=== PATIENT | female | born 1980 | race Caucasian/White ===

== ENCOUNTER → 2017-06-19 | Outpatient (CLI) | payer MEDICAID ==
[2017-06-19 08:22] LABS: Basophils # (A) 0.1 k/uL (0-0.2); Basophils % (A) 1 %; CH 28.7; CHCM 34.1; Eosinophils # (A) 0.1 k/uL (0-0.7); Eosinophils % (A) 2 %; HDW 2.16; HGB 13.5 gm/dL (11.4-16.0); Luc # (Auto) 0.13; Luc % (Auto) 2; Lymphocytes # (A) 2.4 k/uL (1.0-4.8); Lymphocytes % (A) 35 %; MCH 27.8 pg (25.0-35.0); MCHC 32.9 g/dL (31.0-37.0); MCV 84.6 fL (80.0-100.0); Mean Platelet Volume 7.2; Monocytes # (A) 0.4 k/uL (0-1.0); Monocytes % (A) 5 %; Neutrophils # (A) 3.8 k/uL (1.3-7.7); Neutrophils % (A) 55 %; RBC 4.84 m/uL (3.80-5.40); WBC 6.9 k/uL (3.8-10.6); WBC (Perox) 6.76
[2017-06-19 08:46] LABS: ALT 43 U/L (9-52); AST 24 U/L (14-36); Alkaline Phosphatase 88 U/L (38-126); Anion Gap 10 mmol/L; Blood Urea Nitrogen 11 mg/dL (7-17); Calcium 9.7 mg/dL (8.4-10.2); Carbon Dioxide 27 mmol/L (22-30); Chloride 103 mmol/L (98-107); Cholesterol 239 mg/dL (<200); Glucose 87 mg/dL (74-99); HDL Cholesterol 73 mg/dL (40-60); Non-African American GFR(MDRD) >60 (>60 ml/min/1.73 sqM); Potassium 4.6 mmol/L (3.5-5.1); Sodium 140 mmol/L (137-145); Total Bilirubin 0.4 mg/dL (0.2-1.3); Total Protein 7.2 g/dL (6.3-8.2)
== END | disposition home or self-care (01) ==
LOC: LABWHC1 07:28
PROVIDERS: ATTEND Family Medicine
DX: Z00.00 Encounter for general adult medical examination without abnormal findings (principal)
CPT/HCPCS: 36415; 80053; 80061; 84443; 85025

== ENCOUNTER → 2017-07-17 | Outpatient (CLI) | payer MEDICAID ==
[2017-07-18 12:08] LABS: Lyme IgG/IgM Interp NEGATIVE (NEGATIVE)
== END | disposition home or self-care (01) ==
LOC: LABWHC1 07:27
PROVIDERS: ATTEND Otolaryngology
DX: R43.0 Anosmia (principal); R53.83 Other fatigue
CPT/HCPCS: 36415; 82607; 84443; 86618

== ENCOUNTER → 2017-07-29 | Outpatient (CLI) | payer MEDICAID ==
--- NOTE | 2017-07-29 07:53 | MR ---
EXAMINATION TYPE: MR brain wo/w con DATE OF EXAM: 07/29/2017 COMPARISON: NONE HISTORY: anosmia TECHNIQUE: Multiplanar, multisequence images of the brain and brainstem is performed without and with IV contras t, utilizing 8 mL intravenous Gadavist . FINDINGS: Diffusion weighted images demonstrate no evidence of a recent infarct or other diffusion ab normality. There is no extra-axial fluid collection or significant white matter signal abnormality. The ventricular system and cisternal spaces are normal in size and appearance. The brain volume is age appropriate. Midline structures demonstrate normal morphology. The craniocervical junction appears within normal limits. Post contrast images demonstrate no abnormal enhancement. There is changes of the left chronic sinusitis. IMPRESSION: 1. No acute process.
== END ==
LOC: RADMRIMAIN 06:30
PROVIDERS: ATTEND Otolaryngology
DX: R51 Headache (principal); R43.0 Anosmia
CPT/HCPCS: 70553; A9581

== ENCOUNTER → 2018-04-13 | Outpatient (CLI) | payer MEDICAID ==
[2018-04-13 07:54] LABS: Basophils # (A) 0.1 k/uL (0-0.2); Basophils % (A) 1 %; Eosinophils # (A) 0.2 k/uL (0-0.7); Eosinophils % (A) 2 %; HCT 43.2 % (34.0-46.0); HGB 14.1 gm/dL (11.4-16.0); Lymphocytes # (A) 3.5 k/uL (1.0-4.8); Lymphocytes % (A) 35 %; MCH 27.5 pg (25.0-35.0); MCHC 32.7 g/dL (31.0-37.0); MCV 84.2 fL (80.0-100.0); Mean Platelet Volume 6.4; Monocytes # (A) 0.5 k/uL (0-1.0); Monocytes % (A) 5 %; Neutrophils # (A) 5.5 k/uL (1.3-7.7); Neutrophils % (A) 55 %; Platelet Count 330 k/uL (150-450); RBC 5.13 m/uL (3.80-5.40); RDW 13.4 % (11.5-15.5); WBC 9.9 k/uL (3.8-10.6)
[2018-04-13 08:16] LABS: ALT 31 U/L (9-52); AST 17 U/L (14-36); Albumin 4.4 g/dL (3.5-5.0); Alkaline Phosphatase 84 U/L (38-126); Anion Gap 14 mmol/L; Blood Urea Nitrogen 19 mg/dL (7-17); Calcium 9.6 mg/dL (8.4-10.2); Carbon Dioxide 27 mmol/L (22-30); Chloride 101 mmol/L (98-107); Cholesterol 275 mg/dL (<200); Glucose 90 mg/dL (74-99); HDL Cholesterol 73 mg/dL (40-60); LDL Cholesterol,Calculated 179 mg/dL (0-99); Potassium 4.2 mmol/L (3.5-5.1); Sodium 142 mmol/L (137-145); Total Bilirubin 0.4 mg/dL (0.2-1.3); Total Protein 7.2 g/dL (6.3-8.2); Triglycerides 113 mg/dL (<150)
== END | disposition home or self-care (01) ==
LOC: LABWHC1 07:09
PROVIDERS: ATTEND Family Medicine
DX: Z00.00 Encounter for general adult medical examination without abnormal findings (principal)
CPT/HCPCS: 36415; 80053; 80061; 84443; 85025

== ENCOUNTER → 2018-05-13 | Outpatient (CLI) | payer MEDICAID ==
[2018-05-13 07:43] LABS: Basophils # (A) 0.1 k/uL (0-0.2); Basophils % (A) 1 %; Eosinophils # (A) 0.2 k/uL (0-0.7); Eosinophils % (A) 2 %; HGB 12.9 gm/dL (11.4-16.0); Lymphocytes # (A) 3.7 k/uL (1.0-4.8); Lymphocytes % (A) 32 %; MCH 26.5 pg (25.0-35.0); MCHC 31.4 g/dL (31.0-37.0); MCV 84.5 fL (80.0-100.0); Mean Platelet Volume 6.4; Monocytes # (A) 0.6 k/uL (0-1.0); Monocytes % (A) 5 %; Neutrophils # (A) 6.7 k/uL (1.3-7.7); Neutrophils % (A) 59 %; Platelet Count 345 k/uL (150-450); RBC 4.86 m/uL (3.80-5.40); RDW 13.1 % (11.5-15.5); WBC 11.4 k/uL (3.8-10.6)
[2018-05-13 08:08] LABS: ALT 37 U/L (9-52); AST 17 U/L (14-36); Albumin 4.2 g/dL (3.5-5.0); Alkaline Phosphatase 83 U/L (38-126); Anion Gap 10 mmol/L; Blood Urea Nitrogen 15 mg/dL (7-17); Carbon Dioxide 23 mmol/L (22-30); Chloride 105 mmol/L (98-107); Glucose 95 mg/dL (74-99); Potassium 4.4 mmol/L (3.5-5.1); Sodium 138 mmol/L (137-145); Total Bilirubin 0.3 mg/dL (0.2-1.3); Total Protein 6.8 g/dL (6.3-8.2)
== END | disposition home or self-care (01) ==
LOC: LABWHC1 07:23
PROVIDERS: ATTEND Family Medicine
DX: I10 Essential (primary) hypertension (principal)
CPT/HCPCS: 36415; 80053; 85025

== ENCOUNTER → 2018-09-08 | Outpatient (CLI) | payer MEDICAID ==
[2018-09-08 08:19] LABS: Basophils # (A) 0.1 k/uL (0-0.2); Basophils % (A) 1 %; Eosinophils # (A) 0.2 k/uL (0-0.7); Eosinophils % (A) 2 %; HCT 44.5 % (34.0-46.0); HGB 13.7 gm/dL (11.4-16.0); Lymphocytes # (A) 2.8 k/uL (1.0-4.8); Lymphocytes % (A) 29 %; MCH 27.2 pg (25.0-35.0); MCHC 30.9 g/dL (31.0-37.0); MCV 87.9 fL (80.0-100.0); Mean Platelet Volume 8.1; Monocytes # (A) 0.5 k/uL (0-1.0); Monocytes % (A) 5 %; Neutrophils # (A) 6.1 k/uL (1.3-7.7); Neutrophils % (A) 63 %; Platelet Count 333 k/uL (150-450); RBC 5.06 m/uL (3.80-5.40); RDW 13.6 % (11.5-15.5); WBC 9.7 k/uL (3.8-10.6)
[2018-09-08 17:11] LABS: Albumin 4.7 g/dL (3.80-4.90); Albumin/Globulin Ratio 2.47 (1.20-2.10); Anion Gap 8.5 mmol/L (4.00-12.00); Calcium 9.4 mg/dL (8.7-10.3); Carbon Dioxide 23.5 mmol/L (21.6-31.8); Globulin 1.9 g/dL (2.1-3.7); LDL Cholesterol,Calculated 116.2 mg/dL (0.0-131.0); Potassium 4.5 mmol/L (3.5-5.5); Total Bilirubin 0.3 mg/dL (0.2-1.2); Total Protein 6.6 g/dL (6.2-8.2); VLDL Calculation 48.8 mg/dL (5.00-40.00)
== END | disposition home or self-care (01) ==
LOC: LABWHC1 07:42
PROVIDERS: ATTEND Family Medicine
DX: E78.2 Mixed hyperlipidemia (principal); I10 Essential (primary) hypertension
CPT/HCPCS: 36415; 80053; 80061; 85025

== ENCOUNTER → 2018-12-09 | Outpatient (CLI) | payer MEDICAID ==
[2018-12-09 12:24] LABS: Albumin 4.5 g/dL (3.80-4.90); Albumin/Globulin Ratio 1.96 (1.60-3.17); Anion Gap 8.4 mmol/L (4.00-12.00); Calcium 9.4 mg/dL (8.7-10.3); Carbon Dioxide 26.6 mmol/L (21.6-31.8); Globulin 2.3 g/dL (1.6-3.3); Potassium 4.5 mmol/L (3.5-5.5); Total Bilirubin 0.4 mg/dL (0.3-1.2); Total Protein 6.8 g/dL (6.2-8.2)
== END | disposition home or self-care (01) ==
LOC: LABWHC1 07:34
PROVIDERS: ATTEND Family Medicine
DX: E78.2 Mixed hyperlipidemia (principal)
CPT/HCPCS: 36415; 80053; 80061

== ENCOUNTER → 2019-03-09 | Outpatient (CLI) | payer MEDICAID ==
[2019-03-09 12:35] LABS: LDL Cholesterol,Calculated 124.2 mg/dL (0.0-131.0); VLDL Calculation 17.8 mg/dL (5.00-40.00)
== END | disposition home or self-care (01) ==
LOC: LABWHC1 07:12
PROVIDERS: ATTEND Family Medicine
DX: E78.2 Mixed hyperlipidemia (principal)
CPT/HCPCS: 36415; 80061

== ENCOUNTER → 2019-06-23 | Outpatient (CLI) | payer MEDICAID ==
[2019-06-23 07:57] LABS: Basophils # (A) 0.1 k/uL (0-0.2); Basophils % (A) 1 %; Eosinophils # (A) 0.2 k/uL (0-0.7); Eosinophils % (A) 3 %; HCT 41.9 % (34.0-46.0); HGB 13.4 gm/dL (11.4-16.0); Lymphocytes # (A) 2.5 k/uL (1.0-4.8); Lymphocytes % (A) 33 %; MCH 28.2 pg (25.0-35.0); MCV 88.1 fL (80.0-100.0); Mean Platelet Volume 6.5; Monocytes # (A) 0.4 k/uL (0-1.0); Monocytes % (A) 5 %; Neutrophils # (A) 4.4 k/uL (1.3-7.7); Neutrophils % (A) 57 %; Platelet Count 265 k/uL (150-450); RBC 4.76 m/uL (3.80-5.40); RDW 12.9 % (11.5-15.5); WBC 7.8 k/uL (3.8-10.6)
[2019-06-23 11:27] LABS: Albumin 4.5 g/dL (3.80-4.90); Albumin/Globulin Ratio 2.25 (1.60-3.17); Anion Gap 10.1 mmol/L (4.00-12.00); BUN/Creat Ratio 25.56 Ratio (12.00-20.00); Calcium 9.8 mg/dL (8.7-10.3); Carbon Dioxide 26.9 mmol/L (21.6-31.8); Chol/HDL Ratio 2.46; LDL Cholesterol,Calculated 129.8 mg/dL (0.0-131.0); Potassium 4.5 mmol/L (3.5-5.5); Total Bilirubin 0.5 mg/dL (0.2-1.2); Total Protein 6.5 g/dL (6.2-8.2); VLDL Calculation 20.2 mg/dL (5.00-40.00)
== END | disposition home or self-care (01) ==
LOC: LABWHC1 07:29
PROVIDERS: ATTEND Family Medicine
DX: I10 Essential (primary) hypertension (principal); E78.2 Mixed hyperlipidemia
CPT/HCPCS: 36415; 80053; 80061; 85025

== ENCOUNTER → 2019-09-13 | Outpatient (CLI) | payer MEDICAID ==
[2019-09-13 08:46] LABS: Basophils # (A) 0.1 k/uL (0-0.2); Basophils % (A) 1 %; Eosinophils # (A) 0.2 k/uL (0-0.7); Eosinophils % (A) 2 %; HCT 39.5 % (34.0-46.0); HGB 13.1 gm/dL (11.4-16.0); Lymphocytes # (A) 3.5 k/uL (1.0-4.8); Lymphocytes % (A) 47 %; MCH 29.3 pg (25.0-35.0); MCHC 33.2 g/dL (31.0-37.0); MCV 88.4 fL (80.0-100.0); Mean Platelet Volume 6.1; Monocytes # (A) 0.4 k/uL (0-1.0); Monocytes % (A) 5 %; Neutrophils # (A) 3.2 k/uL (1.3-7.7); Neutrophils % (A) 43 %; Platelet Count 295 k/uL (150-450); RBC 4.46 m/uL (3.80-5.40); RDW 12.9 % (11.5-15.5); WBC 7.4 k/uL (3.8-10.6)
[2019-09-13 18:38] LABS: African American GFR (CKD) 107.6 (60.0-200.0); Albumin 4.3 g/dL (3.80-4.90); Albumin/Globulin Ratio 2.39 (1.60-3.17); Anion Gap 6.4 mmol/L (4.00-12.00); BUN/Creat Ratio 26.25 Ratio (12.00-20.00); Calcium 9.2 mg/dL (8.7-10.3); Carbon Dioxide 26.6 mmol/L (21.6-31.8); Chol/HDL Ratio 2.6; Folate, Serum 11.6 ng/mL; Globulin 1.8 g/dL (1.6-3.3); Non-African American GFR(CKD) 92.9 (60.0-200.0); Potassium 4.2 mmol/L (3.5-5.5); Total Bilirubin 0.4 mg/dL (0.3-1.2); Total Protein 6.1 g/dL (6.2-8.2)
== END | disposition home or self-care (01) ==
LOC: LABWHC1 07:32
PROVIDERS: ATTEND Family Medicine
DX: Z00.00 Encounter for general adult medical examination without abnormal findings (principal); R53.83 Other fatigue
CPT/HCPCS: 36415; 80053; 80061; 82306; 82607; 82746; 84443; 85025

== ENCOUNTER 2019-10-07 14:02 | Emergency (ER) | payer MEDICAID ==
[2019-10-07] MEDS ORDERED: SODIUM CHLORIDE 0.9% 1,000 ML IV STA (14:43)
[2019-10-07] MEDS ORDERED: METOCLOPRAMIDE 5 MG/ML 2 ML VIAL IVP STA (14:44)
[2019-10-07] MEDS ORDERED: MECLIZINE 12.5 MG TAB PO STA (14:44)
--- NOTE | 2019-10-07 14:47 | ED ---
General Adult HPI - General Chief complaint: Syncope Stated complaint: Dizziness Time Seen by Provider: 10/07/19 14:33 Source: patient, RN notes reviewed Mode of arrival: ambulatory Limitations: no limitations - History of Present Illness Initial comments: Patient is a pleasant 39-year-old female presenting to the emergency department complaints of dizziness and syncope. Patient states yesterday morning she woke up dizzy. Patient went to the bathroom and passed out, possibly twice. Patient has been dizzy most the day yesterday. Patient thought she was doing somewhat better today and then got more dizzy again and felt she may pass out again. P atient describes dizziness as a spinning type sensation. No confusion. No weakness. No headache. No isolated area of weakness. Patient does have history of similar type episode several months ago. - Related Data Previous Rx's Medication Instructions Recorded Meclizine [Antivert] 25 mg PO TID PRN #12 tab 10/07/19 Metoclopramide HCl [Reglan] 10 mg PO Q6HR PRN #15 tablet 10/07/19 Allergies Allergy/AdvReac Type Severity Reaction Status Date / Time amoxicillin Allergy Rash/Hives Verified 10/07/19 14:14 clindamycin Allergy Unknown Verified 10/07/19 14:14 Review of Systems ROS Statement: Those systems with pertinent positive or pertinent negative responses have been documented in the HPI. ROS Other: All systems not noted in ROS Statement are negative. Constitutional: Denies: fever Eyes: Denies: eye pain ENT: Denies: ear pain Respiratory: Denies: cough Cardiovascular: Reports: palpitations (Patient did have some palpitations briefly yesterday). Denies: chest pain Endocrine: Denies: fatigue Gastrointestinal: Reports: nausea. Denies: abdominal pain Genitourinary: Denies: dysuria Musculoskeletal: Denies: back pain Skin: Denies: rash Neurological: Reports: vertigo. Denies: headache, weakness, confusion Past Medical History Past Medical History: No Reported History History of Any Multi-Drug Resistant Organisms: None Reported Past Surgical History: No Surgical Hx Reported Past Psychological History: Depression Smoking Status: Never smoker Past Alcohol Use History: Occasional Past Drug Use History: None Reported General Exam Limitations: no limitations General appearance: alert, in no apparent distress Head exam: Present: atraumatic, normocephalic Eye exam: Present: normal appearance, PERRL, EOMI. Absent: nystagmus ENT exam: Present: normal oropharynx Neck exam: Present: normal inspection Respiratory exam: Present: normal lung sounds bilaterally Cardiovascular Exam: Present: regular rate, normal rhythm Expanded Peripheral pulses: 2+: Radial (R), Radial (L), Dorsalis Pedis (R), Dorsalis Pedis (L) GI/Abdominal exam: Present: soft. Absent: tenderness Extremities exam: Present: normal inspection Neurological exam: Present: alert, oriented X3, CN II-XII intact. Absent: motor sensory deficit Expanded Neurological exam: Present: protecting the airway Speech: Present: fluid speech Cranial nerves: EOM's Intact: Normal, Facial Sensation: Normal Cerebellar function: Finger to Nose: Normal Sensory exam: Upper Extremity Light Touch: Normal, Lower Extremity Light Touch: Normal Motor strength exam: RUE: 5, LUE: 5, RLE: 5, LLE: 5 Eye Response: (4) open spontaneously Motor Response: (6) obeys commands Verbal Response: (5) oriented Psychiatric exam: Present: normal affect, normal mood Skin exam: Present: normal color Course Vital Signs 10/07/19 10/07/19 14:11 14:50 Temperature 97.9 F Pulse Rate 79 Pulse Rate [ 65 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 ND 120. QRS 94. QT 404. QTC 406. Normal axis. LVH. Prominent T waves. Medical Decision Making - Medical Decision Making Patient reevaluated and significantly improved. Patient able to get up and walk around without any difficulty. Case was discussed in detail with Dr. Maxwell including CT results. He is comfortable with discharge and follow-up. Patient updated. - Lab Data Result diagrams: 10/07/19 14:50 10/07/19 14:50 Lab Results 10/07/19 10/07/19 10/07/19 Range/Units 14:50 14:50 14:50 WBC 6.4 (3.8-10.6) k/uL RBC 4.76 (3.80-5.40) m/uL Hgb 14.1 (11.4-16.0) gm/dL Hct 41.2 (34.0-46.0) % MCV 86.6 (80.0-100.0) fL MCH 29.5 (25.0-35.0) pg MCHC 34.1 (31.0-37.0) g/dL RDW 12.8 (11.5-15.5) % Plt Count 266 (150-450) k/uL Neutrophils % 63 % Lymphocytes % 24 % Monocytes % 8 % Eosinophils % 3 % Basophils % 1 % Neutrophils # 4.0 (1.3-7.7) k/uL Lymphocytes # 1.5 (1.0-4.8) k/uL Monocytes # 0.5 (0-1.0) k/uL Eosinophils # 0.2 (0-0.7) k/uL Basophils # 0.0 (0-0.2) k/uL PT 9.9 (9.0-12.0) sec INR 0.9 (<1.2) APTT 24.9 (22.0-30.0) sec Sodium 139 (137-145) mmol/L Potassium 3.8 (3.5-5.1) mmol/L Chloride 104 (98-107) mmol/L Carbon Dioxide 29 (22-30) mmol/L Anion Gap 6 mmol/L BUN 19 H (7-17) mg/dL Creatinine 0.83 (0.52-1.04) mg/dL Est GFR (CKD-EPI)AfAm >90 (>60 ml/min/1.73 sqM) Est GFR (CKD-EPI)NonAf 90 (>60 ml/min/1.73 sqM) Glucose 98 (74-99) mg/dL Calcium 9.2 (8.4-10.2) mg/dL Magnesium 2.2 (1.6-2.3) mg/dL Total Bilirubin 0.6 (0.2-1.3) mg/dL AST 25 (14-36) U/L ALT 22 (4-34) U/L Alkaline Phosphatase 76 (38-126) U/L Total Protein 7.0 (6.3-8.2) g/dL Albumin 4.2 (3.5-5.0) g/dL - Radiology Data Radiology results: report reviewed (Computed tomography scan the brain shows no acute process. CTA shows congenital. Patient posterior cerebral arteries. Small caliber to vertebral and basilar arteries. No large vessel occlusion or aneurysm.) Disposition Clinical Impression: Vertigo Disposition: HOME SELF-CARE Condition: Stable Instructions (If sedation given, give patient instructions): Vertigo (ED) Additional Instructions: Please follow-up with primary care physician as well as ENT and neurology specialist in the next couple days for recheck. Return for increased dizziness, passing out, confusion, speech problems, weakness, worsening symptoms or any other concerns. Prescriptions sent to Stephane at [facility] Prescriptions: Meclizine [Antivert] 25 mg PO TID PRN #12 tab PRN Reason: dizziness Metoclopramide HCl [Reglan] 10 mg PO Q6HR PRN #15 tablet PRN Reason: Nausea Is patient prescribed a controlled substance at d/c from ED?: No Referrals: Guero Donnelly MD [Primary Care Provider] - 1-2 days Time of Disposition: 16:33
[2019-10-07 15:08] LABS: Basophils % (A) 1 %; Eosinophils # (A) 0.2 k/uL (0-0.7); Eosinophils % (A) 3 %; HCT 41.2 % (34.0-46.0); HGB 14.1 gm/dL (11.4-16.0); Lymphocytes # (A) 1.5 k/uL (1.0-4.8); Lymphocytes % (A) 24 %; MCH 29.5 pg (25.0-35.0); MCHC 34.1 g/dL (31.0-37.0); MCV 86.6 fL (80.0-100.0); Mean Platelet Volume 7.3; Monocytes # (A) 0.5 k/uL (0-1.0); Monocytes % (A) 8 %; Neutrophils % (A) 63 %; Platelet Count 266 k/uL (150-450); RBC 4.76 m/uL (3.80-5.40); RDW 12.8 % (11.5-15.5); WBC 6.4 k/uL (3.8-10.6)
[2019-10-07 15:15] LABS: ALT 22 U/L (4-34); AST 25 U/L (14-36); African American GFR (CKD) >90 (>60 ml/min/1.73 sqM); Albumin 4.2 g/dL (3.5-5.0); Alkaline Phosphatase 76 U/L (38-126); Anion Gap 6 mmol/L; Blood Urea Nitrogen 19 mg/dL (7-17); Calcium 9.2 mg/dL (8.4-10.2); Carbon Dioxide 29 mmol/L (22-30); Chloride 104 mmol/L (98-107); Glucose 98 mg/dL (74-99); Magnesium 2.2 mg/dL (1.6-2.3); Non-African American GFR(CKD) 90 (>60 ml/min/1.73 sqM); Potassium 3.8 mmol/L (3.5-5.1); Sodium 139 mmol/L (137-145); Total Bilirubin 0.6 mg/dL (0.2-1.3)
[2019-10-07 15:24] LABS: INR 0.9 (<1.2); Partial Thromboplastin Time 24.9 sec (22.0-30.0); Prothrombin Time 9.9 sec (9.0-12.0)
--- NOTE | 2019-10-07 15:28 | CT ---
EXAMINATION TYPE: CT brain wo con DATE OF EXAM: 10/07/2019 COMPARISON: None HISTORY: 39-year-old female HAHN and dizziness, syncope x1 day ago TECHNIQUE: Examination was done in axial plane without intravenous contrast. Coronal and sagittal r econstructions performed. CT DLP: 1022.8 mGycm Automated exposure control for dose reduction was used. FINDINGS: There is no evidence of acute intracranial hemorrhage, acute ischemic changes, mass, mass-effect, or extra-axial fluid collection. There is no effacement of cerebral sulci or basal subarachnoid cister ns. There is no hydrocephalus. There is no midline shift. Meléndez-white matter distinction is preserv ed. Paranasal sinuses and mastoid air cells are well pneumatized. Orbits and globes are intact. IMPRESSION: No acute intracranial abnormality seen.
--- NOTE | 2019-10-07 15:49 | CT ---
EXAMINATION TYPE: CT angio head neck DATE OF EXAM: 10/07/2019 COMPARISON: CT brain same day HISTORY: 39-year-old female Dizziness and syncope x1 day ago TECHNIQUE: Contiguous axial scanning of the head and neck performed with IV Contrast, patient injecte d with 65 mL of Isovue 370. Coronal/sagittal MIP reconstructions performed. 3-D reconstructions gener ated on a dedicated independent workstation. CT DLP: 324.7 mGycm Automated exposure control for dose reduction was used. FINDINGS: NECK: Bone configuration to the aortic arch. Vertebral arteries are codominant and patent throughout her course. The bilateral common and internal carotid arteries are patent. HEAD: There seem to be bilateral origins to the posterior cerebral arteries. Vertebral and basilar ar teries appear patent but show relatively small caliber. Internal carotid arteries are patent. Remainder of the anterior and posterior circulations are patent . No aneurysmal change is seen. IMPRESSION: 1. NECK: WIDELY PATENT VERTEBRAL AND CAROTID ARTERIES OF THE NECK. 2. 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 RELATI VELY SMALL CALIBER TO THE VERTEBRAL AND BASILAR ARTERIES. CORRELATE FOR ANY POTENTIAL CHRONIC SYMPTOM S OF VERTEBROBASILAR INSUFFICIENCY. NO LARGE VESSEL INTRACRANIAL ARTERIAL OCCLUSION OR ANEURYSMAL XENIA NGE IS SEEN.
[2019-10-07 16:34] VITALS: BP 128/87; PULSE 62; RESP 16; TEMP 97.8
== END 2019-10-07 16:45 | disposition home or self-care (01) ==
LOC: EC 14:02
DX: R42 Dizziness and giddiness (principal); R55 Syncope and collapse; Z88.0 Allergy status to penicillin; Z88.1 Allergy status to other antibiotic agents
CPT/HCPCS: 36415; 93005; 80053; 83735; 85025; 85610; 85730; 70496; 70450; 70498; 99284; 96374; 96361; J2765; Q9967

== ENCOUNTER → 2019-10-20 | Outpatient (CLI) | payer MEDICAID ==
--- NOTE | 2019-10-20 07:46 | MR ---
EXAMINATION TYPE: MR brain wo/w con DATE OF EXAM: 10/20/2019 COMPARISON: CT brain October 07, 2019. MRI brain July 29 2017. HISTORY: Vagal syncope TECHNIQUE: Multiplanar, multisequence images of the brain and brainstem is performed without and with IV contras t, utilizing 7 mL intravenous Gadavist . FINDINGS: Diffusion weighted images demonstrate no evidence of a recent infarct or other diffusion ab normality. There is no extra-axial fluid collection or significant white matter signal abnormality. The ventricular system and cisternal spaces are normal in size and appearance. The brain volume is age appropriate. Midline structures demonstrate normal morphology. The craniocervical junction appears within normal limits. Post contrast images demonstrate no abnormal enhancement. The dural venous sinuses appear pa tent. The visualized sinuses are bowel clear. Previously visualized retention cyst or polyp inferior anterior left maxillary sinus not identified. Improved mucosal bilateral ethmoid sinuses. No suspicio us new fluid signal bilateral mastoid air cells. IMPRESSION: No significant new or acute findings.
--- NOTE | 2019-10-20 07:51 | MR ---
EXAMINATION TYPE: MR angio head wo/neck wo/w con DATE OF EXAM: 10/20/2019 COMPARISON: CTA head and neck October 07, 2019 HISTORY: Vagal syncope TECHNIQUE: Time of flight images focusing on the [place] were performed without contrast.. 2-D and 3-D postprocessing imaging is performed on independent workstation and reviewed. MRA imaging of the neck is performed without and with IV contrast, patient injected with 7 cc of gadavist. 3-D re construction images created on a workstation and reviewed. FINDINGS: Imaging of great vessels from aortic arch is not included in field of view but was performe d on recent CTA study and showed no suspicious abnormality. Right common carotid artery shows normal origin from right brachiocephalic artery. There is no significant focal stenosis in the common or int ernal carotid arteries bilaterally including a level of bilateral carotid bulbs. Patent bilateral ext ernal carotid arteries are seen without significant stenosis. There is codominant vertebrobasilar system. Vertebral arteries are patent to basilar junction. Small caliber vertebrobasilar system redemonstrated. There are persistent patent bilateral origins of the posterior cerebral arteries. No significant focal stenosis or aneurysmal change. Anterior circul ation shows patent anterior communicating artery on image 86. No significant focal stenosis or aneury smal changes are seen IMPRESSION: Redemonstration of small caliber vertebral basilar system. Persistent origin of pos terior cerebral arteries bilaterally redemonstrated. No significant change from recent CTA study.
== END | disposition home or self-care (01) ==
LOC: RADMRIMAIN 06:03
PROVIDERS: ATTEND Psychiatry & Neurology Sleep Medicine
DX: R55 Syncope and collapse (principal)
CPT/HCPCS: 70544; 70549; 70553; A9585

== ENCOUNTER → 2019-10-27 | Outpatient (CLI) | payer MEDICAID ==
--- NOTE | 2019-10-27 08:36 | US ---
EXAMINATION TYPE: US carotid duplex BILAT DATE OF EXAM: 10/27/2019 COMPARISON: CT 2019 CLINICAL HISTORY: R55 Syncope and collapse. Dizziness, syncope EXAM MEASUREMENTS: RIGHT: Peak Systolic Velocity (PSV) cm/sec ----- Right CCA: 89.7 ----- Right ICA: 99.4 ----- Right ECA: 83.5 ICA/CCA ratio: 1.1 RIGHT: End Diastole cm/sec ----- Right CCA: 23.8 ----- Right ICA: 39.6 ----- Right ECA: 18.0 LEFT: Peak Systolic Velocity (PSV) cm/sec ----- Left CCA: 82.9 ----- Left ICA: 111.0 ----- Left ECA: 96.2 ICA/CCA ratio: 1.3 LEFT: End Diastole cm/sec ----- Left CCA: 21.1 ----- Left ICA: 46.0 ----- Left ECA: 14.3 VERTEBRALS (direction of flow): Right Vertebral: Antegrade Left Vertebral: Antegrade Rhythm: Normal No elevated velocities, no significant stenosis. IMPRESSION: 1. No significant flow-limiting stenosis bilateral carotid bifurcations Criteria for Assigning % of Stenosis / Diameter reduction (Estimation based on the indirect measurements of the internal carotid artery velocities (ICA PSV). 1. Normal (no stenosis)=ICA PSV < 125 cm/s: ratio < 2.0: ICA EDV<40 cm/s. 2. Less than 50% stenosis=ICA PSV < 125 cm/s: ratio < 2.0: ICA EDV<40 cm/s. 3. 50 to 69% stenosis=ICA PSV of 125 to 230 cm/s: ration 2.0 ? 4.0: ICA EDV 40-100 cm/s. 4. Greater than 70% stenosis to near occlusion= ICA PSV > 230 cm/s: ratio > 4.0: ICA EDV > 100 cm/s. 5. Near occlusion= ICA PSV velocities may be low or undetectable: variable ratio and ICA EDV. 6. Total occlusion=unable to detect flow.
== END | disposition home or self-care (01) ==
LOC: RADUSWWP 07:00
PROVIDERS: ATTEND Psychiatry & Neurology Sleep Medicine
DX: R55 Syncope and collapse (principal)
CPT/HCPCS: 93880

== ENCOUNTER → 2019-11-23 | Outpatient (CLI) | payer MEDICAID ==
--- NOTE | 2019-11-23 12:27 | ECHOF ---
Referral Reason:R55 Syncope MEASUREMENTS -------- HEIGHT: 157.5 cm WEIGHT: 72.6 kg BP: 154/99 RVIDd: 2.6 cm (< 3.3) IVSd: 1.0 cm (0.6 - 1.1) LVIDd: 3.9 cm (3.9 - 5.3) LVPWd: 0.9 cm (0.6 - 1.1) IVSs: 1.7 cm LVIDs: 2.7 cm LVPWs: 1.6 cm LA Diam: 3.1 cm (2.7 - 3.8) LAESV Index (A-L): 22.11 ml/m Ao Diam: 2.8 cm (2.0 - 3.7) AV Cusp: 1.7 cm (1.5 - 2.6) MV EXCURSION: 12.973 mm (> 18.000) MV EF SLOPE: 84 mm/s (70 - 150) EPSS: 0.6 cm MV E Balbir: 0.83 m/s MV DecT: 168 ms MV A Balbir: 0.77 m/s MV E/A Ratio: 1.09 TAPSE: 18.74 mm FINDINGS -------- Sinus rhythm. This was a technically good study. The left ventricular size is normal. Left ventricular wall thickness is normal. Overall left vent ricular systolic function is normal with, an EF between 60 - 65 %. The right ventricle is normal in size. Normal LA size by volume 22+/-6 ml/m2. The right atrium is normal in size. Interatrial and interventricular septum intact. The aortic valve is trileaflet and appears structurally normal. There is trace mitral regurgitation. The tricuspid valve appears structurally normal. Trace/mild (physiologic) pulmonic regurgitation. The aortic root size is normal. Normal inferior vena cava with normal inspiratory collapse consistent with estimated right atrial pre ssure of 5 mmHg. There is no pericardial effusion. CONCLUSIONS -------- 1. Sinus rhythm. 2. This was a technically good study. 3. The left ventricular size is normal. 4. Left ventricular wall thickness is normal. 5. Overall left ventricular systolic function is normal with, an EF between 60 - 65 %. 6. The right ventricle is normal in size. 7. Normal LA size by volume 22+/-6 ml/m2. 8. The right atrium is normal in size. 9. Interatrial and interventricular septum intact. 10. The aortic valve is trileaflet and appears structurally normal. 11. There is trace mitral regurgitation. 12. The tricuspid valve appears structurally normal. 13. Trace/mild (physiologic) pulmonic regurgitation. 14. The aortic root size is normal. 15. Normal inferior vena cava with normal inspiratory collapse consistent with estimated right atrial pressure of 5 mmHg. 16. There is no pericardial effusion. DOOR TO DOOR SALESMAN: GARLAND Mcrae
--- NOTE | 2019-11-23 15:01 | EST ---
EXERCISE STRESS AGE: 39 SEX: F HT: 62" WT: 160 PROTOCOL: Bala Stress Test STAGE: 3 DURATION OF EXERCISE: 9:00 HEART RATE REST: 97 BLOOD PRESSURE REST: 162/99 MAXIMUM HEART RATE ACHIEVED: 158 MAXIMUM BLOOD PRESSURE: 203/102 85% MPHR: 154 100% MPHR: 181 METS: 10.5 INDICATIONS: Syncope CLINICAL INFORMATION: Baseline EKG revealed normal sinus rhythm with voltage criteria for LVH. Patient walked for 9 minutes on a standard Bala protocol. He did not have any symptoms of angina. He developed some fatigue and shortness of breath. Maximal heart rate is 158 beats per minute which is more than 85% of predicted maximal. There was somewhat of a hypertensive response with a peak pressure of 203/102. Patient had upsloping ST- segment changes, but no clear-cut evidence suggest ischemia. By EKG criteria, this is a negative stress test with fair exercise capacity with somewhat of a hypertensive response to exercise. MMTRUPTIL / IJN: [id number] /
== END | disposition home or self-care (01) ==
LOC: RADNMMAIN 08:31
PROVIDERS: ATTEND Internal Medicine Clinical Cardiac Electrophysiology
DX: I10 Essential (primary) hypertension (principal)
CPT/HCPCS: 93017; 93306

== ENCOUNTER → 2019-11-26 | Outpatient (CLI) | payer MEDICAID ==
--- NOTE | 2019-12-28 09:48 | EM ---
EVENT MONITOR This is a 30-day event monitor. DATE: November 26, 2019 INDICATION: Cardiac arrhythmia. The patient was monitored for 30 days. The baseline rhythm seems to be sinus mechanism. The patient did have multiple episodes of sinus tachycardia. Beside that, the patient did have one episode of sinus bradycardia. Also the patient did have two episodes of wide-complex tachycardia, seems to be nonsustained ventricular tachycardia with a heart rate between 115 to 130. The wide complex tachycardia was associated with symptoms of shortness of breath. No evidence of significant sinus pause or sinus arrest. CONCLUSION: 1. This is a 30-day event monitor. 2. The baseline rhythm is sinus mechanism. 3. The patient did have multiple episodes of sinus tachycardia. 4. The patient did have two episodes of wide-complex tachycardia lasts for about 10 seconds consistent with nonsustained ventricular tachycardia and during these episodes the patient was symptomatic in term of shortness of breath. 5. No evidence of sinus pause or sinus arrest. MMODL / IJN: [id number] /
== END | disposition home or self-care (01) ==
LOC: RADECHMAIN 12:25
PROVIDERS: ATTEND Internal Medicine Clinical Cardiac Electrophysiology
DX: R00.0 Tachycardia, unspecified (principal); R06.02 Shortness of breath; Z88.1 Allergy status to other antibiotic agents
CPT/HCPCS: 93270

== ENCOUNTER → 2020-03-03 | Outpatient (CLI) | payer MEDICAID ==
--- NOTE | 2020-03-03 14:50 | ECHOS ---
STRESS ECHOCARDIOGRAM LUMASON: INDICATIONS: Vertigo and Syncope. MEDICATIONS: BASELINE HEART RATE: 87 BASELINE BLOOD PRESSURE: 123/64 MAXIMUM HEART RATE: 179 MAXIMUM BLOOD PRESSURE: 153/77 85% MPHR: 154 100% MPHR: 181 METS: 11.5 MAXIMUM STAGE REACHED: 4 TOTAL EXERCISE TIME: 10:03 CLINICAL INFORMATION: Baseline EKG revealed normal sinus rhythm without significant ST-T changes. There was voltage criteria for LVH. Patient walked on standard Bala protocol for 10 minutes. 3 seconds, achieved a maximal heart rate of 172 beats per minute which is well above 85% of predicted maximal. She developed fatigue and shortness of breath, but she did not have any angina. There was no arrhythmia. There were no ST-segment changes to indicate ischemia. By EKG criteria, this is an exercise. This is a and negative stress test with excellent exercise capacity without any angina or arrhythmia EKG changes to indicate ischemia. Baseline echo images revealed normal wall motion wall thickening of all segments. There was some LVH noted concentric. At peak exercise there was good augmentation of left ventricular wall motion wall thickening of all segments suggesting that there is no evidence of stress-induced ischemia on this study. IMPRESSION: 1. Excellent exercise capacity with a negative stress test by EKG criteria. 2. Normal stress echocardiogram. 3. No evidence of any arrhythmia, angina, or EKG changes to indicate ischemia. MMODL / IJN: [id number] /
== END | disposition home or self-care (01) ==
LOC: RADNMMAIN 09:56
PROVIDERS: ATTEND Internal Medicine Clinical Cardiac Electrophysiology
DX: R55 Syncope and collapse (principal); Z88.0 Allergy status to penicillin; Z88.1 Allergy status to other antibiotic agents
CPT/HCPCS: 93351

== ENCOUNTER → 2020-12-18 | Outpatient (CLI) | payer MEDICAID ==
--- NOTE | 2020-12-19 14:54 | MM ---
Reason for exam: screening (asymptomatic). Last mammogram was performed 4 years and 11 months ago. History: Patient is nulliparous. Family history of breast cancer in mother at age 73. Took hormonal contraceptives for 26 years. Physical Findings: A clinical breast exam by your physician is recommended on an annual basis and results should be correlated with mammographic findings. MG 3D Screening Mammo W/Cad Bilateral CC and MLO view(s) were taken. Prior study comparison: January 17, 2016, bilateral MG 3d screening mammo w/cad. The breast tissue is heterogeneously dense. This may lower the sensitivity of mammography. No significant changes when compared with prior studies. ASSESSMENT: Negative, BI-RAD 1 RECOMMENDATION: Routine screening mammogram of both breasts in 1 year.
== END | disposition home or self-care (01) ==
LOC: RADMAMWWP 16:11
PROVIDERS: ATTEND Obstetrics & Gynecology
DX: Z12.31 Encounter for screening mammogram for malignant neoplasm of breast (principal); Z80.3 Family history of malignant neoplasm of breast
CPT/HCPCS: 77063; 77067

== ENCOUNTER → 2020-12-21 | Outpatient (CLI) | payer MEDICAID ==
[2020-12-21 15:21] LABS: Basophils # (A) 0.06 X 10*3/uL (0.00-0.10); Basophils % (A) 0.6 %; Eosinophils # (A) 0.25 X 10*3/uL (0.04-0.35); Eosinophils % (A) 2.6 %; HCT 40.8 % (37.2-46.3); HGB 13.2 g/dL (12.0-15.0); Lymphocytes # (A) 3.57 X 10*3/uL (0.90-5.00); Lymphocytes % (A) 37.7 %; MCHC 32.4 g/dL (32.0-37.0); MCV 86.6 fL (80.0-97.0); Mean Platelet Volume 9.9 fL (9.5-12.2); Monocytes % (A) 7.4 %; Neutrophils # (A) 4.86 X 10*3/uL (1.80-7.70); Neutrophils % (A) 51.3 %; Platelet Count 370 X 10*3/uL (140-440); RBC 4.71 X 10*6/uL (4.10-5.20); RDW 13.8 % (11.5-14.5); WBC 9.48 X 10*3/uL (4.50-10.00)
[2020-12-21 21:54] LABS: African American GFR (CKD) 106.9 (60.0-200.0); Albumin 4.6 g/dL (3.80-4.90); Anion Gap 12.6 mmol/L (4.00-12.00); BUN/Creat Ratio 26.25 Ratio (12.00-20.00); Calcium 9.7 mg/dL (8.7-10.3); Carbon Dioxide 24.4 mmol/L (21.6-31.8); Chol/HDL Ratio 4.15; Globulin 2.3 g/dL (1.6-3.3); LDL Cholesterol,Calculated 166.2 mg/dL (0.0-131.0); Non-African American GFR(CKD) 92.2 (60.0-200.0); Potassium 4.5 mmol/L (3.5-5.5); Total Bilirubin 0.4 mg/dL (0.3-1.2); Total Protein 6.9 g/dL (6.2-8.2); VLDL Calculation 28.8 mg/dL (5.00-40.00)
== END | disposition home or self-care (01) ==
LOC: LABWHC1 07:21
PROVIDERS: ATTEND Family Medicine
DX: Z00.00 Encounter for general adult medical examination without abnormal findings (principal); I10 Essential (primary) hypertension
CPT/HCPCS: 36415; 80053; 80061; 84443; 85025

== ENCOUNTER → 2020-12-21 | Outpatient (CLI) | payer MEDICAID ==
--- NOTE | 2020-12-27 07:49 | P.HOLTER ---
24 Hour Holter monitor note: Patient wore a Holter monitor for 24 hrs from 12/21/2020 until 12/22/2020. Findings: Patient's baseline heart rate was normal sinus rhythm. There were no signficant atrial fibrillation, atrial flutter, or ventricular tachycardia episodes. There were no significant pauses greater than 2 seconds. Patient's minimum heart rate was 57. Patient's maximum heart rate was 140. Patient's average heart rate was 87. There were no pauses greater than 2.5 seconds. There was no diary or patient activated events. Rare PVCs noted. Conclusions: Normal sinus rhythm with rare PVCs. No atrial fibrillation, ventricular tachycardia, pauses greater than 2.5 seconds.
== END ==
LOC: RADECHMAIN 12:27
PROVIDERS: ATTEND Internal Medicine Clinical Cardiac Electrophysiology
DX: I49.3 Ventricular premature depolarization (principal)
CPT/HCPCS: 93225; 93226

== ENCOUNTER → 2021-03-01 | Outpatient (CLI) | payer MEDICAID ==
[2021-03-01 16:27] LABS: Estradiol 53.9 pg/mL; Follicle Stimulating Hormone 16.4 mIU/mL; Luteinizing Hormone 9.5 mIU/mL
== END | disposition home or self-care (01) ==
LOC: LABWHC1 07:29
PROVIDERS: ATTEND Obstetrics & Gynecology
DX: N91.2 Amenorrhea, unspecified (principal); R23.2 Flushing
CPT/HCPCS: 36415; 82670; 83001; 83002

== ENCOUNTER 2021-03-16 08:08 | Emergency (ER) | payer MEDICAID ==
[2021-03-16 08:14] VITALS: RESP 18
[2021-03-16] MEDS: BACITRACIN OINT 1 EACH PACKET TOPICAL ONE (09:01)
[2021-03-16] MEDS: DIPH,PERTUS(ACELL)TETVAC-LF 0.5 ML VIAL IM ONE (09:02)
--- NOTE | 2021-03-16 09:04 | ED ---
Animal Bite HPI - General Chief Complaint: Animal Bite Stated Complaint: Dog bite Time Seen by Provider: 03/16/21 08:17 Source: patient, RN notes reviewed Mode of arrival: ambulatory Limitations: no limitations - History of Present Illness Initial Comments: This a 40-year-old female presents emergency Department chief complaint abdominal bite to her right wrist region. Patient states she's trying to help another person with 2 dogs R Catherine her dog. Patient states that she was bit to the right wrist she is unsure when her last tetanus was. She states there are 4 small puncture wounds. Patient states his is a local dog. She has no concerns for rabies. Patient states she has full range of motion no other complaints. - Related Data Previous Rx's Medication Instructions Recorded Meclizine [Antivert] 25 mg PO TID PRN #12 tab 10/07/19 Metoclopramide HCl [Reglan] 10 mg PO Q6HR PRN #15 tablet 10/07/19 Doxycycline Monohydrate [Monodox] 100 mg PO Q12HR #20 cap 03/16/21 Allergies Allergy/AdvReac Type Severity Reaction Status Date / Time amoxicillin Allergy Rash/Hives Verified 03/16/21 08:14 clindamycin Allergy Unknown Verified 03/16/21 08:14 Review of Systems ROS Statement: Those systems with pertinent positive or pertinent negative responses have been documented in the HPI. ROS Other: All systems not noted in ROS Statement are negative. Past Medical History Past Medical History: No Reported History History of Any Multi-Drug Resistant Organisms: None Reported Past Surgical History: No Surgical Hx Reported Past Psychological History: Depression Smoking Status: Never smoker Past Alcohol Use History: Occasional Past Drug Use History: None Reported General Exam Limitations: no limitations General appearance: alert, in no apparent distress Head exam: Present: atraumatic, normocephalic, normal inspection Respiratory exam: Present: normal lung sounds bilaterally. Absent: respiratory distress, wheezes, rales, rhonchi, stridor Cardiovascular Exam: Present: regular rate, normal rhythm, normal heart sounds. Absent: systolic murmur, diastolic murmur, rubs, gallop, clicks Extremities exam: Present: other (Right wrist region there are 4 puncture wounds to dorsal 2 on the ventral aspect neurovascular intact full range of motion.) Course Vital Signs 03/16/21 08:09 Temperature 98.7 F Pulse Rate 84 Respiratory 18 Rate Blood Pressure 143/77 O2 Sat by Pulse 96 Oximetry Medical Decision Making - Medical Decision Making Patient's tetanus is updated x-ray is negative. Patient's wounds are cleaned, dressed. Patient was discharged on antibiotics. Patient declines rabies vaccine. Disposition Clinical Impression: Dog bite Disposition: HOME SELF-CARE Condition: Stable Instructions (If sedation given, give patient instructions): Animal Bite (ED) Additional Instructions: Please return to the Emergency Department if symptoms worsen or any other concerns. Prescriptions: Doxycycline Monohydrate [Monodox] 100 mg PO Q12HR #20 cap Is patient prescribed a controlled substance at d/c from ED?: No Referrals: Guero Donnelly MD [Primary Care Provider] - 1-2 days Time of Disposition: 09:04
--- NOTE | 2021-03-16 09:14 | XR ---
EXAMINATION TYPE: XR wrist complete RT DATE OF EXAM: 03/16/2021 CLINICAL HISTORY: Dog bite injury with pain. TECHNIQUE: Frontal, lateral and oblique images of the wrist are obtained. 4 view scaphoid view is p erformed. COMPARISON: None FINDINGS: There is no acute fracture/dislocation evident in the right wrist. The joint spaces in th e right wrist appear within normal limits. The overlying soft tissue appears unremarkable without shelton spicious radiodense foreign body. IMPRESSION: As above.
[2021-03-16 09:35] VITALS: BP 136/90; PULSE 78; TEMP 97.6
== END 2021-03-16 09:32 | disposition home or self-care (01) ==
LOC: EC 08:08
DX: S61.551A Open bite of right wrist, initial encounter (principal); W54.0XXA Bitten by dog, initial encounter; Z23 Encounter for immunization
CPT/HCPCS: 90471; 90715; 99283

== ENCOUNTER → 2021-04-16 | Outpatient (CLI) | payer MEDICAID ==
[2021-04-16 14:39] LABS: Basophils # (A) 0.05 X 10*3/uL (0.00-0.10); Basophils % (A) 0.6 %; Eosinophils # (A) 0.24 X 10*3/uL (0.04-0.35); Eosinophils % (A) 2.9 %; HCT 40.6 % (37.2-46.3); Lymphocytes # (A) 3.33 X 10*3/uL (0.90-5.00); Lymphocytes % (A) 40.7 %; MCH 28.1 pg (27.0-32.0); MCV 87.9 fL (80.0-97.0); Mean Platelet Volume 10.3 fL (9.5-12.2); Monocytes # (A) 0.62 X 10*3/uL (0.20-1.00); Monocytes % (A) 7.6 %; Neutrophils % (A) 47.7 %; Platelet Count 311 X 10*3/uL (140-440); RBC 4.62 X 10*6/uL (4.10-5.20); RDW 13.8 % (11.5-14.5); WBC 8.18 X 10*3/uL (4.50-10.00)
[2021-04-16 14:44] LABS: African American GFR (CKD) 106.9 (60.0-200.0); Albumin 4.6 g/dL (3.80-4.90); Albumin/Globulin Ratio 1.84 (1.60-3.17); Anion Gap 6.8 mmol/L (4.00-12.00); Calcium 9.3 mg/dL (8.7-10.3); Carbon Dioxide 28.2 mmol/L (21.6-31.8); Globulin 2.5 g/dL (1.6-3.3); Non-African American GFR(CKD) 92.2 (60.0-200.0); Potassium 4.2 mmol/L (3.5-5.5); Total Bilirubin 0.5 mg/dL (0.2-1.2); Total Protein 7.1 g/dL (6.2-8.2)
[2021-04-16 15:03] LABS: Chol/HDL Ratio 3.1; LDL Cholesterol,Calculated 108.4 mg/dL (0.0-131.0); VLDL Calculation 21.6 mg/dL (5.00-40.00)
[2021-04-16 16:32] LABS: Hemoglobin A1C 5.7 % (4.0-6.0)
== END | disposition home or self-care (01) ==
LOC: LABWHC1 08:51
PROVIDERS: ATTEND Internal Medicine Clinical Cardiac Electrophysiology
DX: E78.2 Mixed hyperlipidemia (principal)
CPT/HCPCS: 36415; 80053; 80061; 83036; 85025

== ENCOUNTER → 2021-12-12 | Outpatient (CLI) | payer MEDICAID ==
--- NOTE | 2021-12-12 21:35 | CT ---
EXAMINATION TYPE: CT sinus w con DATE OF EXAM: 12/12/2021 COMPARISON: CT dated 10/07/2019 HISTORY: sinus headaches, loss of taste and smell CT DLP: 423 mGycm Automated exposure control for dose reduction was used. CONTRAST: CT scan of the facial bones including sinuses is performed with IV Contrast, patient injected with 10 0 mL of Isovue 300. TECHNIQUE: CT scan of the sinuses is performed with IV contrast, axial images are obtained, coronal r eformatted images are also reviewed. FINDINGS: Rather central bony nasal septum. No significant mucosal thickening of the nasal fossa bilaterally. P atent maxillary infundibula bilaterally as well as ostiomeatal complexes. Minimal mucosal thickening of the alveolar recesses of the maxillary sinuses, otherwise unremarkable maxillary sinuses. Unremark able sphenoid sinus and ethmoid air cells. Hypopneumatized frontal sinus. Patent sphenoethmoidal recesses. Clear mastoid air cells. Prominent pa latine tonsils slightly more on the right side, please correlate clinically. Subcentimeter bilateral upper cervical lymph nodes, nonspecific. Unremarkable visualized portion of the brain and orbits. No definite abnormal enhancement identified. IMPRESSION: Minimal mucosal thickening of the alveolar recesses of the maxillary sinuses, otherwise no evidence o f acute or chronic sinusitis. Slightly prominent palatine tonsils, slightly more on the right side, please correlate clinically. Fu rther ENT consultation can be considered. Other incidental findings as described above.
== END | disposition home or self-care (01) ==
LOC: RADCTMAIN 17:51
PROVIDERS: ATTEND Otolaryngology
DX: J34.89 Other specified disorders of nose and nasal sinuses (principal)
CPT/HCPCS: 70487; Q9967

== ENCOUNTER → 2022-02-14 | Outpatient (CLI) | payer MEDICAID ==
[2022-02-14 15:25] LABS: Basophils # (A) 0.06 X 10*3/uL (0.00-0.10); Basophils % (A) 0.6 %; Eosinophils # (A) 0.25 X 10*3/uL (0.04-0.35); Eosinophils % (A) 2.6 %; HCT 42.5 % (37.2-46.3); HGB 13.3 g/dL (12.0-15.0); Immature Grans, Automated 0.4 %; Lymphocytes # (A) 2.91 X 10*3/uL (0.90-5.00); Lymphocytes % (A) 30.3 %; MCH 28.1 pg (27.0-32.0); MCHC 31.3 g/dL (32.0-37.0); MCV 89.9 fL (80.0-97.0); Mean Platelet Volume 10.5 fL (9.5-12.2); Monocytes # (A) 0.78 X 10*3/uL (0.20-1.00); Monocytes % (A) 8.1 %; NRBC Per 100 WBC 0 /100 WBCS (0.0-0.0); Neutrophils # (A) 5.57 X 10*3/uL (1.80-7.70); Platelet Count 329 X 10*3/uL (140-440); RBC 4.73 X 10*6/uL (4.10-5.20); RDW 13.6 % (11.5-14.5); WBC 9.61 X 10*3/uL (4.50-10.00)
[2022-02-14 20:10] LABS: ALT 28 U/L (8-44); AST 18 U/L (13-35); African American GFR (CKD) 101.2 (60.0-200.0); Albumin 4.5 g/dL (3.8-4.9); Albumin/Globulin Ratio 1.64 (1.60-3.17); Alkaline Phosphatase 124 U/L (41-126); BUN/Creat Ratio 15.75 Ratio (12.00-20.00); Blood Urea Nitrogen 13.1 mg/dL (9.0-27.0); Calcium 9.5 mg/dL (8.7-10.3); Carbon Dioxide 25.1 mmol/L (20.0-27.5); Chloride 100 mmol/L (96-109); Chol/HDL Ratio 3.56 Ratio; Globulin 2.8 g/dL (1.6-3.3); Glucose 85 mg/dL (70-110); LDL Cholesterol,Calculated 108.3 mg/dL (0.0-131.0); Non-African American GFR(CKD) 87.3 (60.0-200.0); Potassium 4.2 mmol/L (3.5-5.5); Sodium 136 mmol/L (135-145); Total Protein 7.3 g/dL (6.2-8.2); VLDL Calculation 13.24 mg/dL (5.00-40.00)
== END | disposition home or self-care (01) ==
LOC: LABWHC1 07:41
PROVIDERS: ATTEND Family Medicine
DX: Z00.00 Encounter for general adult medical examination without abnormal findings (principal)
CPT/HCPCS: 36415; 80053; 80061; 84443; 85025

== ENCOUNTER → 2022-04-24 | Outpatient (CLI) | payer MEDICAID ==
--- NOTE | 2022-04-24 17:25 | P.SLEEP ---
History of Present Illness DATE: 04/24/2022 CONSULTATION/NEW PATIENT EVALUATION HISTORY OF PRESENT ILLNESS/SLEEP-WAKE EVALUATION: With T1year old lady had b een evaluated in the sleep center for possible obstructive sleep apnea hypopnea syndrome, sleepiness, and multiple movements including out of dream movements during the sleep. SLEEP SCHEDULE: Usually sleep schedule on weekdays 10 PM to 6.45 AM, during days off 10 PM until 11 AM. FALLING ASLEEP: Usually no problems with falling asleep, although patient has TV set and bedroom. DURING SLEEP: Patient snores, wakes up from sleep once with nocturia. Positive history of out of dream movements and significant amount of kicking during the sleep. No history of hypnogogical hallucinations, sleep paralysis, or cataplexy. DURING THE DAY/WAKE STATE: In the morning patient wake up diet, has problems with memory and depression.. Dover sleepiness scale is creased to 15. Patient may take naps during days of usually afternoon between 1 and 2 PM. PAST MEDICAL HISTORY: Depression, hypertension, hyperlipidemia. PAST SURGICAL HISTORY: 9 MEDICATIONS: Venlafaxine 150 mg once a day, metoprolol 50 mg once a day, amlodipine 5 mg once a day, simvastatin 20 mg once a day, control pills. SOCIAL HISTORY: Negative for smoking, alcohol consumption occasional. FAMILY HISTORY: Hypertension, heart problems, restless legs, lung problems. REVIEW OF SYSTEMS: Snoring, out of dream movements, kicking during the sleep. No fevers. No double vision. No recent chest pain. No shortness of breath. No a bdominal pain. No bleeding episodes. No blood in urine. No seizure episodes. PHYSICAL EXAMINATION: GENERAL: A pleasant patient without any distress. VITAL SIGNS: BP 118/77, HR 73, RR 16, weight 208.2 pounds, height 5 foot 3-1/4 inches, body mass index 36.6. HEENT: PERRLA, EOMI. Evaluation of oropharynx showed tongue protrudes midline, low position of soft palate Mallampati 4. NECK: Supple. No JVD. Thyroid is not palpable. 15 inches in circumference. LUNGS: Clear to percussion and to auscultation. Good air exchange. No wheezing or rhonchi. HEART: S1, S2 regular. No murmurs, gallops or rubs. ABDOMEN: Soft and nontender. Bowel sounds are present. No organomegaly appreciated. EXTREMITIES: No clubbing or cyanosis. ENERGY SALES BROKER: Awake, alert, and oriented x3. Cranial nerves 2 to 7 intact. There is no fasciculation or atrophy noted. No focal deficits observed. ASSESSMENT: 1. Snoring, awakenings from sleep with nocturia, extremely low position of soft palate Mallampati 4, sleepiness. Possible obstructive sleep apnea hypopnea syndrome. 2. Out of dream movements of his episodes of punching. Possible REM sleep behavioral disorder. 3 sleepiness, Dover Sleepiness Scale increased to 15. Differential diagnosis should include narcolepsy without cataplexy and idiopathic hypersomnia on weekend patient sleeps more than 12 hours. 4. History of depression. 5 hypertension. 6. Hyperlipidemia. 7. Kicking at night possibly periodic limb movements. PLAN: 1. Polysomnography for evaluation of patient's breathing during sleep, to check for possible periodic limb movements and REM sleep behavioral disorder. If sleep study is negative for physical abnormalities of sleep multiple sleep latency test for objective evaluation patient's symptoms of excessive daytime sleepiness. 2. CPAP/BiPAP titration if sleep study confirms obstructive sleep apnea- hypopnea syndrome. 3. Preferable position during sleep on the side. 4. No driving if patient feels any sleepiness. Patient is aware of civil and criminal liability for unsafe driving. 5. Sleep hygiene with regular sleep time for at least 7.5-8 hours. 6. Watching weight. 7. Precautions related to her REM sleep behavioral disorder. Mac-size bed. Sincerely, Moustapha Palencia MD, PhD, FAASM. Diplomat of [place] [employer], Sleep Medicine Board by [place] [employer] [place] [employer] Project Developer of [facility] [place] Past Medical History Past Medical History: No Reported History History of Any Multi-Drug Resistant Organisms: None Reported Past Surgical History: No Surgical Hx Reported Past Psychological History: Depression Smoking Status: Never smoker Past Alcohol Use History: Occasional Past Drug Use History: None Reported Medications and Allergies Home Medications Medication Instructions Recorded Confirmed Type Meclizine [Antivert] 25 mg PO TID PRN #12 tab 10/07/19 Rx Metoclopramide HCl [Reglan] 10 mg PO Q6HR PRN #15 tablet 10/07/19 Rx Doxycycline Monohydrate [Monodox] 100 mg PO Q12HR #20 cap 03/16/21 Rx Allergies Allergy/AdvReac Type Severity Reaction Status Date / Time amoxicillin Allergy Rash/Hives Verified 03/16/21 08:14 clindamycin Allergy Unknown Verified 03/16/21 08:14 Sleep Note - Sleep Note Sleep Note: Temperature: Pulse Rate: Respiratory Rate: Blood Pressure: SpO2: Height: Weight: BMI: Neck Circumference:
== END ==
LOC: SLEEP 16:39
PROVIDERS: ATTEND Internal Medicine
DX: R40.0 Somnolence (principal); R35.1 Nocturia; R06.83 Snoring; F32.A Depression, unspecified; I10 Essential (primary) hypertension; E78.5 Hyperlipidemia, unspecified; Z88.1 Allergy status to other antibiotic agents
CPT/HCPCS: 99211

== ENCOUNTER → 2022-06-26 | Outpatient (CLI) | payer MEDICAID ==
--- NOTE | 2022-06-26 17:27 | P.PN ---
Subjective DATE: 06/26/2022 FOLLOW UP VISIT. Patient returned to sleep center for follow-up visit to discuss results of sleep study and following plan. .Sontag sleepiness scale is increased to 15 and indicates sleepiness. I discuss results of diagnostic polysomnogram with patient in details. Sleep study showed severe obstructive sleep apnea hypopnea syndrome mostly related to hypopneas. Mild periodic limb movements have been documented without micro- arousals. I discussed with the patient options for treatment of obstructive sleep apnea-hypopnea syndrome including losing weight, options of surgical treatment, usage of oral appliances, using electrical stimulation for subglossal nerve Inspire. The best choice for treatment for patient with severe obstructive sleep apnea hypopnea syndrome still treatment with CPAP and I discussed possibility to use small nasal pillows mask for treatment. MEDICATIONS:1. Venlafaxine 2. Metoprolol 3. Amlodipine 4. Simvastatin 5. control pill During physical exam: GENERAL: A pleasant patient without any distress. VITAL SIGNS: BP 124/78, HR 70, RR 16 , weight 200, temperature 98.4, oxygen saturation at room air 94% . HEENT: PERRLA, EOMI. NECK: Supple. No JVD. LUNGS: Clear to percussion and to auscultation. Good air exchange. No wheezing or rhonchi. HEART: S1, S2 regular. ABDOMEN: Soft and nontender. EXTREMITIES: No clubbing or cyanosis. TANK INSPECTOR: Awake, alert, and oriented x3. No focal deficit. Impressions: 1. Obstructive sleep apnea hypopnea syndrome in severe range. 2. Minimal periodic limb movements have been documented. 3. Some movements documented during REM sleep, possibly REM sleep behavior disorder, which could be secondary to obstructive sleep apnea. 4. History of depression. 5. Hypertension. 6. Hyperlipidemia. Plan: 1. CPAP titration for correction of respiratory abnormalities during sleep 2. Sleep hygiene with regular time in bed for at least 8 hours. 3. Losing weight 4. Precautions related to driving. No driving if feel any sleepiness. Patient is aware about civil and criminal liability for unsafe driving, promised to follow recommendations. 5. Follow up visit in one month's after patient will get CPAP equipment. Thank you very much for allowing me to participate in the management of your patient. Moustapha Palencia MD, PhD, FAASM. Diplomat of [place] [employer], Sleep Medicine Board by [place] [employer] Kier Operator of [facility] [place]
== END ==
LOC: SLEEP 15:22
PROVIDERS: ATTEND Internal Medicine
DX: G47.33 Obstructive sleep apnea (adult) (pediatric) (principal); G47.61 Periodic limb movement disorder; F32.A Depression, unspecified; E78.5 Hyperlipidemia, unspecified; Z99.89 Dependence on other enabling machines and devices; Z79.899 Other long term (current) drug therapy

== ENCOUNTER → 2022-08-29 | Outpatient (CLI) | payer MEDICAID ==
--- NOTE | 2022-08-29 09:29 | MM ---
Reason for Exam: Screening (asymptomatic). Last mammogram was performed 1 year(s) and 8 month(s) ago. Patient History: Menarche at age 16. Patient has no children. Currently using Hormonal Contraceptives, for 26 years. Mother had breast cancer, age 73. Risk Values: Sakshi 5 year model risk: 1.2%. NCI Lifetime model risk: 17.0%. Prior Study Comparison: 01/17/2016 Bilateral Screening Mammogram, [facility]. 12/18/2020 Bilateral Screening Mammogram, [facility]. Tissue Density: The breast tissue is heterogeneously dense. This may lower the sensitivity of mammography. Findings: Analyzed By CAD. There is no suspicious group of microcalcifications or new suspicious mass in either breast. No significant change from prior exams. Overall Assessment: Negative, BI-RAD 1 Management: Screening Mammogram of both breasts in 1 year. A clinical breast exam by your physician is recommended on an annual basis and results should be correlated with mammographic findings. Electronically signed and approved by: Johann Marx D.O.
== END | disposition home or self-care (01) ==
LOC: RADMAMWWP 07:16
PROVIDERS: ATTEND Obstetrics & Gynecology
DX: Z12.31 Encounter for screening mammogram for malignant neoplasm of breast (principal); Z80.3 Family history of malignant neoplasm of breast
CPT/HCPCS: 77063; 77067

== ENCOUNTER → 2023-01-08 | Outpatient (CLI) | payer MEDICAID ==
--- NOTE | 2023-01-08 17:55 | P.PN ---
Subjective DATE: 01/08/2023 FOLLOW UP VISIT. Patient with obstructive sleep apnea hypopnea syndrome return to sleep center for follow-up visit. Recently patient had sleep study which documented obstructive sleep apnea hypopnea syndrome. Patient was initiated on PAP therapy and today is first visit after treatment was started. Patient was able to use PAP equipment every night for the whole night. The patient does not have significant problems with the mask, PAP pressure and humidification. Branscomb sleepiness scale is 14, which indicates sleepiness. I checked information from PAP unit. PAP unit pressure 7-14, average 13.6 cm H2O. Usage is 97 % for more then 4 hours, average 8.3 hours per night. Leak is 5.8 l/m, which is in acceptable range. Apnea Hypopnea Index is 5.9, which is slightly above normal. MEDICATIONS:1. Metoprolol 2. Amlodipine 3. Simvastatin 4. Venlafaxine During physical exam: GENERAL: A pleasant patient without any distress. VITAL SIGNS: BP 129/72, HR 90, RR 16, weight 211, temperature 98.3, oxygen sa turation at room air 97. HEENT: PERRLA, EOMI.low position of soft palate, Mallapati[] . NECK: Supple. No JVD. LUNGS: Clear to percussion and to auscultation. Good air exchange. No wheezing or rhonchi. HEART: S1, S2 regular. ABDOMEN: Soft and nontender. Slightly obese EXTREMITIES: No clubbing or cyanosis. PUSHER RUNNER: Awake, alert, and oriented x3. No focal deficit. Impressions: 1. Obstructive sleep apnea-hypopnea syndrome. Patient demonstrated great compliance with treatment, benefiting from treatment. 2. Minimal periodic limb movements. 3. History of movements during REM sleep, possibly REM sleep behavior disorder, could be secondary to VANDA. 4. Hypertension. 5. History of depression. 6. Hyperlipidemia. Plan: 1. Continue using PAP equipment every night for the whole night. We will try small nasal pillow mask. I increased range of the pressure in CPAP unit to 7-15 centimeters of water. 2. To change air filter at least 1-2 times per month. 3. PAP unit should stay lower then position of the head. 4. Advised patient to remove all remaining water from humidifier canister daily and make it dry after each usage. Refill canister with fresh distilled water before each usage. 5. Sleep hygiene with regular time in bed for at least 8 hours. 6. Precautions related to driving. No driving if feel any sleepiness. 7. I will maintain prescription for PAP supplies including mask, tube, filters. 8. Follow up visit in 6 months or earlier if patient has any problems. 9. Watching weight. Thank you very much for allowing me to participate in the management of your patient. Moustapha Palencia MD, PhD, FAASM. Diplomat of [place] [employer], Sleep Medicine Board by [place] [employer] Other Wood Processing Machine Operator of [facility] [place]
== END ==
LOC: SLEEP 15:45
PROVIDERS: ATTEND Internal Medicine
DX: G47.33 Obstructive sleep apnea (adult) (pediatric) (principal); F32.A Depression, unspecified; E78.5 Hyperlipidemia, unspecified; I10 Essential (primary) hypertension; G47.61 Periodic limb movement disorder; Z99.89 Dependence on other enabling machines and devices; Z88.0 Allergy status to penicillin; Z88.1 Allergy status to other antibiotic agents; Z79.899 Other long term (current) drug therapy
CPT/HCPCS: 99212

== ENCOUNTER → 2023-02-19 | Outpatient (CLI) | payer MEDICAID ==
[2023-02-19 16:13] LABS: African American GFR (CKD) 92.8 (60.0-200.0); Albumin 4.7 g/dL (3.8-4.9); BUN/Creat Ratio 14.74 Ratio (12.00-20.00); Blood Urea Nitrogen 13.1 mg/dL (9.0-27.0); Calcium 9.7 mg/dL (8.7-10.3); Carbon Dioxide 27.3 mmol/L (20.0-27.5); Chloride 103 mmol/L (96-109); Glucose 83 mg/dL (70-110); Non-African American GFR(CKD) 80.1 (60.0-200.0); Potassium 4.6 mmol/L (3.5-5.5); Sodium 141 mmol/L (135-145); Total Protein 7.1 g/dL (6.2-8.2)
[2023-02-19 16:14] LABS: ALT 38 U/L (8-44); AST 19 U/L (13-35); Albumin/Globulin Ratio 1.95 (1.60-3.17); Alkaline Phosphatase 135 U/L (41-126); Chol/HDL Ratio 3.21 Ratio; Globulin 2.4 g/dL (1.6-3.3); LDL Cholesterol,Calculated 92.3 mg/dL (0.0-131.0); VLDL Calculation 15.76 mg/dL (5.00-40.00)
== END | disposition home or self-care (01) ==
LOC: LABWHC1 07:20
PROVIDERS: ATTEND Family Medicine
DX: Z00.00 Encounter for general adult medical examination without abnormal findings (principal)
CPT/HCPCS: 36415; 80053; 80061; 84443; 85025

== ENCOUNTER → 2023-02-27 | Outpatient (CLI) | payer MEDICAID ==
[2023-02-27 14:53] LABS: Basophils # (A) 0.06 X 10*3/uL (0.00-0.10); Basophils % (A) 0.6 %; Eosinophils # (A) 0.18 X 10*3/uL (0.04-0.35); Eosinophils % (A) 1.9 %; HGB 14.3 g/dL (12.0-15.0); Immature Grans, Automated 0.3 %; Lymphocytes % (A) 25.9 %; MCH 28.4 pg (27.0-32.0); MCHC 32.5 g/dL (32.0-37.0); MCV 87.3 fL (80.0-97.0); Monocytes # (A) 0.55 X 10*3/uL (0.20-1.00); Monocytes % (A) 5.7 %; NRBC Per 100 WBC 0 /100 WBCS (0.0-0.0); Neutrophils # (A) 6.34 X 10*3/uL (1.80-7.70); Neutrophils % (A) 65.6 %; Platelet Count 364 X 10*3/uL (140-440); RBC 5.04 X 10*6/uL (4.10-5.20); RDW 13.5 % (11.5-14.5); WBC 9.66 X 10*3/uL (4.50-10.00)
== END | disposition home or self-care (01) ==
LOC: LABWHC1 10:53
PROVIDERS: ATTEND Family Medicine
DX: Z00.00 Encounter for general adult medical examination without abnormal findings (principal)
CPT/HCPCS: 36415; 85025

== ENCOUNTER → 2023-09-20 | Outpatient (CLI) | payer MEDICAID ==
[2023-09-20 22:47] LABS: Basophils # (A) 0.06 X 10*3/uL (0.00-0.10); Basophils % (A) 0.6 %; Eosinophils # (A) 0.18 X 10*3/uL (0.04-0.35); Eosinophils % (A) 1.8 %; HCT 41.2 % (37.2-46.3); Lymphocytes # (A) 2.24 X 10*3/uL (0.90-5.00); Lymphocytes % (A) 22.7 %; MCH 28.6 pg (27.0-32.0); MCHC 31.6 g/dL (32.0-37.0); MCV 90.7 FL (80.0-97.0); Mean Platelet Volume 10.2 FL (9.5-12.2); Monocytes # (A) 0.66 X 10*3/uL (0.20-1.00); Monocytes % (A) 6.7 %; NRBC Per 100 WBC 0 X 10*3/uL (0.00-0.01); Neutrophils # (A) 6.71 X 10*3/uL (1.80-7.70); Neutrophils % (A) 67.9 %; Platelet Count 308 X 10*3/uL (140-440); RBC 4.54 X 10*6/uL (4.10-5.20); RDW 13.2 % (11.5-14.5); WBC 9.88 X 10*3/uL (4.50-10.00)
[2023-09-20 23:00] LABS: ALT 39 U/L (8-44); AST 22 U/L (13-35); Albumin 4.6 g/dL (3.8-4.9); Albumin/Globulin Ratio 1.92 Ratio (1.60-3.17); Alkaline Phosphatase 106 U/L (41-126); BUN/Creat Ratio 15.44 Ratio (12.00-20.00); Blood Urea Nitrogen 13.9 mg/dL (9.0-27.0); Calcium 9.7 mg/dL (8.7-10.3); Carbon Dioxide 24.9 mmol/L (21.6-31.8); Chloride 100 mmol/L (96-109); Chol/HDL Ratio 2.93 Ratio; Globulin 2.4 g/dL (1.6-3.3); Glucose 88 mg/dL (70-110); LDL Cholesterol,Calculated 94.9 mg/dL (0.0-131.0); Potassium 4.2 mmol/L (3.5-5.5); Sodium 136 mmol/L (135-145); Total Bilirubin 0.4 mg/dL (0.3-1.2)
== END | disposition home or self-care (01) ==
LOC: LABWHC1 10:17
PROVIDERS: ATTEND Family Medicine
DX: E78.2 Mixed hyperlipidemia (principal)
CPT/HCPCS: 36415; 80053; 80061; 84443; 85025

== ENCOUNTER → 2023-09-25 | Outpatient (CLI) | payer MEDICAID ==
--- NOTE | 2023-09-25 11:39 | P.PN ---
Subjective DATE: 09/25/2023 FOLLOW UP VISIT. Patient with obstructive sleep apnea hypopnea syndrome return to sleep center for follow-up visit. Information from previous visit have been reviewed. Patient is using PAP equipment every night for the whole night, getting PAP supplies in time. Patient feels that is not enough pressure 1 she started to use CPAP equipment, difficulties to breathe in and she also had episodes at night when she wakes up and feels not enough pressure to breathe in .Reva sleepiness scale is increased to 14. I checked information from PAP unit. PAP unit pressure 7-15, average 12.3 cm H2O. Usage is 93% and 90 % for more then 4 hours, average 7-3/4 hours per night. Leak is 14.7 l/m, which is in acceptable range. Apnea Hypopnea Index is 2.9, which is normal. Ramp started at the level of 4 cm of water. MEDICATIONS:1. Metoprolol 2. Amlodipine 3. Simvastatin 4. Venlafaxine During physical exam: GENERAL: A pleasant patient without any distress. VITAL SIGNS: BP 133/85, HR 70, RR 16, weight 202.8, temperature 98.0, oxygen saturation at room air 97 % . HEENT: PERRLA, EOMI.low position of soft palate, Mallapati 3 . NECK: Supple. No JVD. LUNGS: Clear to percussion and to auscultation. Good air exchange. No wheezing or rhonchi. HEART: S1, S2 regular. ABDOMEN: Soft and nontender. Slightly obese EXTREMITIES: No clubbing or cyanosis. TRACK LAYER: Awake, alert, and oriented x3. No focal deficit. I just that pressure in CPAP unit slightly up, REM feels starts from 8 and the pressure will be in the range between 8 and 15 cm of water. We did trial of using CPAP in the office and patient feels comfortable with this pressure. Impressions: 1. Obstructive sleep apnea-hypopnea syndrome. Patient demonstrated great compliance with treatment, benefiting from treatment. 2. History of very minimal periodic limb movements. 3. Mild obesity. 4. Hypertension. 5. History of some movements in REM sleep possibly REM sleep behavior disorder, patient did not complaint at the present time. 6. History of depression. 7. Hyperlipidemia. Plan: 1. Continue using PAP equipment every night for the whole night. 2. To change air filter at least 1-2 times per month. 3. PAP unit should stay lower then position of the head. 4. Advised patient to remove all remaining water from humidifier canister daily and make it dry after each usage. Refill canister with fresh distilled water before each usage. 5. Sleep hygiene with regular time in bed for at least 8 hours. 6. Precautions related to driving. No driving if feel any sleepiness. 7. I will maintain prescription for PAP supplies including mask, tube, filters. 8. Follow up visit in 6 months or earlier if patient has any problems. 9. Watching and losing weight. Thank you very much for allowing me to participate in the management of your pat ient. Moustapha Palencia MD, PhD, FAASM. Diplomat of [place] [employer], Sleep Medicine Board by [place] [employer] Block Machine Operator of [facility] [place]
== END ==
LOC: 3 N SLEEP 11:05
PROVIDERS: ATTEND Internal Medicine
DX: G47.33 Obstructive sleep apnea (adult) (pediatric) (principal); E66.9 Obesity, unspecified; G47.61 Periodic limb movement disorder; E78.5 Hyperlipidemia, unspecified; F32.A Depression, unspecified; I10 Essential (primary) hypertension; Z99.89 Dependence on other enabling machines and devices; Z79.899 Other long term (current) drug therapy; Z88.0 Allergy status to penicillin; Z88.1 Allergy status to other antibiotic agents
CPT/HCPCS: 99212

== ENCOUNTER → 2024-01-15 | Outpatient (CLI) | payer MEDICAID ==
--- NOTE | 2024-01-15 13:23 | MM ---
Reason for Exam: Screening (asymptomatic). Last mammogram was performed 1 year(s) and 5 month(s) ago. Patient History: Menarche at age 16. Patient has no children. Premenopausal. Currently using Hormonal Contraceptives, for 26 years. Maternal aunt had ovarian cancer under age 50. Maternal aunt had breast cancer at or over age 50. Mother had breast cancer, age 73. Risk Values: Sakshi 5 year model risk: 1.3%. NCI Lifetime model risk: 16.8%. Prior Study Comparison: 01/17/2016 Bilateral Screening Mammogram, [facility]. 12/18/2020 Bilateral Screening Mammogram, [facility]. 08/29/2022 Bilateral MG 3D screening mammo w/cad, [facility]. Tissue Density: The breasts are heterogeneously dense, which may obscure small masses. Findings: Analyzed By CAD. There is no suspicious group of microcalcifications or new suspicious mass in either breast. Overall Assessment: Benign, BI-RAD 2 Management: Screening Mammogram of both breasts in 1 year. . Patient should continue monthly self-breast exams. A clinical breast exam by your physician is recommended on an annual basis. This exam should not preclude additional follow-up of suspicious palpable abnormalities. Note on Sakshi scores and lifetime risk: 1. A Sakshi score greater than 3% is considered moderate risk. If this is the case, consider specialist referral to assess eligibility for a risk reducing agent. 2. If overall lifetime risk for the development of breast cancer is 20% or higher, the patient may qualify for future screening with alternating mammogram and breast MRI. Electronically signed and approved by: Anupam Samuels M.D. Radiologis
== END | disposition home or self-care (01) ==
LOC: RADMAMWWP 07:15
PROVIDERS: ATTEND Obstetrics & Gynecology
DX: Z12.31 Encounter for screening mammogram for malignant neoplasm of breast (principal); Z80.3 Family history of malignant neoplasm of breast
CPT/HCPCS: 77063; 77067

== ENCOUNTER → 2024-01-28 | Outpatient (CLI) | payer MEDICAID ==
--- NOTE | 2024-01-28 17:10 | P.PN ---
Subjective DATE: 01/28/2024 FOLLOW UP VISIT. Patient with obstructive sleep apnea hypopnea syndrome return to sleep center for follow-up visit. Information from previous visit have been reviewed. Patient is using PAP equipment every night for the whole night, getting PAP supplies in time. The patient does not have significant problems with the mask, PAP unit and humidification. [place] sleepiness scale is increased to 17. I checked information from PAP unit. PAP unit pressure 8-15, average 12.5 cm H2O. Usage is 90% for more then 4 hours, average 7.25 hours per night. Leak is 19 l/m, which is in acceptable range. Apnea Hypopnea Index is 1.4, which is normal. MEDICATIONS:1. Metoprolol 50 mg once a day 2. Amlodipine 5 mg once a day 3. Simvastatin 20 mg once a day 4. Venlafaxine 150 mg once a day During physical exam: GENERAL: A pleasant patient without any distress. VITAL SIGNS: Please see below, weight two 202.8. HEENT: PERRLA, EOMI.low position of soft palate, [place] 3 . NECK: Supple. No JVD. LUNGS: Clear to percussion and to auscultation. Good air exchange. No wheezing or rhonchi. HEART: S1, S2 regular. ABDOMEN: Soft and nontender.[] EXTREMITIES: No clubbing or cyanosis. INFORMATICS NURSE: Awake, alert, and oriented x3. No focal deficit. Impressions: 1. Obstructive sleep apnea-hypopnea syndrome. Patient demonstrated great compliance with treatment, benefiting from treatment. 2. Hypertension. 3. Hyperlipidemia. 4. History of some movements during REM sleep, possibly REM sleep behavior disorder, no any recent episodes. 5. History of depression. 6. Mild obesity. Plan: 1. Continue using PAP equipment every night for the whole night. 2. To change air filter at least 1-2 times per month. 3. PAP unit should stay lower then position of the head. 4. Advised patient to remove all remaining water from humidifier canister daily and make it dry after each usage. Refill canister with fresh distilled water before each usage. 5. Sleep hygiene with regular time in bed for at least 8 hours. 6. Precautions related to driving. No driving if feel any sleepiness. 7. I will maintain prescription for PAP supplies including mask, tube, filters. 8. Watching weight. 9. Follow up visit in 6 months or earlier if patient has any problems. Thank you very much for allowing me to participate in the management of your patient. Moustapha Palencia MD, PhD, FAASM. Diplomat of [place] [employer], Sleep Medicine Board by [place] [employer] Supervisor of [facility] [place] Objective - Vital Signs Vital signs: Vital Signs Temp 99.0 F 01/28/24 16:55 Pulse 77 01/28/24 16:55 Resp 16 01/28/24 16:55 BP 116/71 01/28/24 16:55 Pulse Ox 98 01/28/24 16:55 FiO2 Intake & Output 01/27/24 01/28/24 01/28/24 18:59 06:59 18:59 Weight 91.626 kg
[2024-01-28 17:29] VITALS: BP 116/71; PULSE 77; RESP 16; TEMP 99
== END | disposition home or self-care (01) ==
LOC: 3 N SLEEP 16:28
PROVIDERS: ATTEND Internal Medicine
DX: G47.33 Obstructive sleep apnea (adult) (pediatric) (principal); I10 Essential (primary) hypertension; E78.5 Hyperlipidemia, unspecified; E66.9 Obesity, unspecified; F32.A Depression, unspecified; Z79.899 Other long term (current) drug therapy; Z99.89 Dependence on other enabling machines and devices; Z88.0 Allergy status to penicillin; Z88.1 Allergy status to other antibiotic agents
CPT/HCPCS: 99212

== ENCOUNTER → 2025-01-25 | Outpatient (CLI) | payer MEDICAID ==
[2025-01-25 15:02] LABS: Basophils # (A) 0.05 X 10*3/uL (0.00-0.10); Basophils % (A) 0.6 %; Eosinophils # (A) 0.22 X 10*3/uL (0.04-0.35); Eosinophils % (A) 2.6 %; HCT 40.3 % (37.2-46.3); HGB 12.7 g/dL (12.0-15.0); Lymphocytes # (A) 2.62 X 10*3/uL (0.90-5.00); Lymphocytes % (A) 30.7 %; MCH 28.2 pg (27.0-32.0); MCHC 31.5 g/dL (32.0-37.0); MCV 89.6 FL (80.0-97.0); Mean Platelet Volume 10.6 FL (9.5-12.2); Monocytes # (A) 0.59 X 10*3/uL (0.20-1.00); Monocytes % (A) 6.9 %; NRBC Per 100 WBC 0 X 10*3/uL (0.00-0.01); Neutrophils # (A) 5.04 X 10*3/uL (1.80-7.70); Platelet Count 305 X 10*3/uL (140-440); RDW 13.2 % (11.5-14.5); WBC 8.54 X 10*3/uL (4.50-10.00)
[2025-01-25 15:28] LABS: ALT 31 U/L (8-44); AST 18 U/L (13-35); Albumin 4.5 g/dL (3.8-4.9); Alkaline Phosphatase 94 U/L (41-126); BUN/Creat Ratio 18.44 Ratio (12.00-20.00); Blood Urea Nitrogen 16.6 mg/dL (9.0-27.0); Calcium 9.3 mg/dL (8.7-10.3); Carbon Dioxide 21.4 mmol/L (21.6-31.8); Chloride 103 mmol/L (96-109); Chol/HDL Ratio 3.36 Ratio; Globulin 2.5 g/dL (1.6-3.3); Glucose 97 mg/dL (70-110); LDL Cholesterol,Calculated 92.2 mg/dL (0.0-131.0); Potassium 4.3 mmol/L (3.5-5.5); Sodium 137 mmol/L (135-145); Total Bilirubin 0.3 mg/dL (0.3-1.2)
== END | disposition home or self-care (01) ==
LOC: LABWHC1 07:26
PROVIDERS: ATTEND Family Medicine
DX: E78.2 Mixed hyperlipidemia (principal)
CPT/HCPCS: 36415; 80053; 80061; 84443; 85025